=== PATIENT | female | born 1980 | race Caucasian/White ===

== ENCOUNTER 2020-04-07 07:32 | Outpatient (CLI) | payer OTHER, SELFPAY ==
--- NOTE | ~2020-04-07 | MM_ITS ---
EXAMINATION: MM screening dewayne BI w jasbir HISTORY: Screening TECHNIQUE: Craniocaudal and mediolateral oblique 3-D tomosynthesis images were obtained and synthetic 2-D images were generated. CAD analysis was submitted and interpreted. COMPARISON: Comparison to multiple prior studies sequentially, with oldest reviewed study dated 06/20. BREAST PARENCHYMAL COMPOSITION: The breasts are heterogeneously dense, which may obscure small masses . FINDINGS: There are subglandular silicone implants. There is no evidence of suspicious mass, calcific ation, or architectural distortion to suggest malignancy in either breast. There has been no suspicio us interval change. IMPRESSION: 1. No mammographic evidence of malignancy. 2. Recommend routine screening mammography in one year. BI-RADS Category 1: Negative Reviewed, dictated and finalized at location A. KMASON HELPER
== END 2020-04-07 07:33 | disposition home or self-care (01) ==
LOC: ANHIMG 07:36
PROVIDERS: PCP Physician Assistant; Visit Provider Nurse Practitioner
DX: Z12.31 Encounter for screening mammogram for malignant neoplasm of breast (principal)
CPT/HCPCS: 77063; 77067

== ENCOUNTER 2020-09-02 11:15 | Emergency (ER) | payer OTHER, SELFPAY ==
[2020-09-02 11:44] VITALS: BP 140/81; PULSE 78; RESP 17; TEMP 36.6; O2SAT 93
[2020-09-02] MEDS: SODIUM CHLORIDE 0.9% IV 1,000 ML 999 ML IV CONT (12:34)
[2020-09-02] MEDS: ONDANSETRON INJ 4 MG/2 ML VIAL IV PUSH (12:34)
[2020-09-02 13:08] LABS: Alanine Aminotransferase 33 U/L (4-35); Albumin Level 4.4 g/dL (3.5-5.1); Alkaline Phosphatase 56 U/L (38-126); Anion Gap 5 mmol/L (8-16); Aspartate Amino Transferase 35 U/L (14-36); Bilirubin,Total 0.1 mg/dL (0.2-1.3); Blood Urea Nitrogen 14 mg/dL (7-17); Calcium 8.8 mg/dL (8.4-10.2); Carbon Dioxide 32 mmol/L (22-30); Chloride 101 mmol/L (98-107); Estimated CRCL calculation 90 ml/min; Estimated Glomerular Filt Rate > 60; Glucose 98 mg/dL (65-105); Lipase 63 U/L (23-300); Sodium 138 mmol/L (137-145)
[2020-09-02 13:31] LABS: Basophils Percent Auto 0.3 % (0.2-1.2); Eosinophils Percent Auto 0.3 % (0-4.4); Hematocrit 45.3 % (37.0-47.0); Hemoglobin 14.8 g/dL (12.0-15.0); Immature Granulocyte Absolute 0.01 K/mm3 (0.00-0.031); Immature Granulocyte Percent A 0.3 % (0-0.5); Lymphocytes Absolute Auto 0.93 K/mm3 (0.9-3.2); Lymphocytes Percent Auto 23.9 % (18.3-44.2); Mean Corpuscular HGB Conc 32.7 g/dl (32-36); Mean Corpuscular Hemoglobin 29.3 pg (26-34); Mean Corpuscular Volume 89.7 fl (80-100); Mean Platelet Volume 9.8 fl (7.4-10.4); Monocytes Absolute Auto 0.4 K/mm3 (0.1-0.6); Monocytes Percent Auto 10.5 % (2.6-8.5); Neutrophils Absolute Auto 2.5 K/mm3 (1.3-6.7); Neutrophils Percent Auto 64.7 % (45.5-73.1); Platelet Count Result 204 k/mm3 (150-375); Red Blood Count 5.05 M/mm3 (4.2-5.4); Red Cell Distribution Width 12.6 % (11.5-14.5); White Blood Count 3.9 K/mm3 (4.5-10.0)
--- NOTE | 2020-09-02 13:36 | ED.NAVMDI ---
HPI - Nausea/Vomiting/Diarrhea General Chief complaint: Nausea/Vomiting/Diarrhea Stated complaint: n/v x 3 days, no taste/smell Time Seen by Provider: 09/02/20 11:28 History of Present Illness HPI Narrative: Patient is a 39-year-old female who presents ER with multiple issues. Reports she began feeling ill approximately 1 week ago but over the last 2 to 3 days she has been having nausea and vomiting as well as diarrhea. Is associated with loss of taste and loss of smell. No known Covid contacts. She is also having fatigue. Has found no alleviating factors. Related Data Allergies Allergy/AdvReac Type Severity Reaction Status Date / Time Penicillins Allergy Unknown Unknown Verified 09/02/20 11:48 No Known Allergies Allergy Unverified 08/06/17 09:53 Review of Systems Review of Systems: All systems reviewed & are unremarkable except as noted in HPI and below Constitutional: Constitutional: Denies chills, Reports fatigue and Denies fever(s) ENT: Denies nasal congestion and Denies sore throat Comments: Loss of taste and smell Cardiovascular: Cardiovascular: Denies chest pain and Denies radiating jaw, neck or arm pain Respiratory: Respiratory: Denies cough, Denies dyspnea and Denies wheezing Gastrointestinal: Gastrointestinal: Denies abdominal pain, Reports nausea and Reports vomiting Genitourinary: Genitourinary: Denies nocturia and Denies dysuria PMFSH Past Medical History Medical History (Updated 09/02/20 @ 13:53 by Judd Weaver MD) Depression Surgical History Surgical History (Updated 09/02/20 @ 13:37 by Judd Weaver MD) History of breast augmentation History of section Family History Family History (Updated 07/24/16 @ 11:29 by DOCTOR UNKNOWN) Father Patient's father is in good health, Onset Age: 55 Social History Social History Smoking status: Never smoker Alcohol intake: never Exam Narrative: Exam Narrative: GENERAL: Well-appearing, well-nourished, and in no acute distress. HEAD: Normocephalic, atraumatic. CHEST: Clear to auscultation. No respiratory distress. HEART: Regular rate and rhythm. Normal peripheral pulses. ABDOMEN: Soft, nontender, nondistended. EXTREMITIES: Normal range of motion. No edema. SKIN: Warm, dry, no rash. NEURO: Alert and oriented x3. PSYCH: Normal mood and affect. Course Course Emergency Course: Patient hydrated and received antiemetics. Feeling improved. Discharge home into isolation until she receives her Covid results. Patient verbalized understanding of treatment plan. Vital Signs Vital signs: Vital Signs Temperature 97.8 F 09/02/20 11:44 Pulse Rate 78 09/02/20 11:44 Respiratory Rate 17 09/02/20 11:44 Blood Pressure 140/81 09/02/20 11:44 Pulse Oximetry 93 09/02/20 11:44 Temperature 97.8 F 09/02/20 11:44 Pulse Rate 73 09/02/20 13:39 Respiratory Rate 18 09/02/20 13:39 Blood Pressure 136/81 09/02/20 13:39 Pulse Oximetry 93 09/02/20 13:39 MDM - Nausea/Vomiting/Diarrhea Lab Data Result diagrams: 09/02/20 13:22 09/02/20 12:33 Labs: Lab Results 09/02/20 09/02/20 09/02/20 Range/Units 12:33 13:22 13:39 WBC 3.9 L (4.5-10.0) K/mm3 RBC 5.05 (4.2-5.4) M/mm3 Hgb 14.8 (12.0-15.0) g/dL Hct 45.3 (37.0-47.0) % MCV 89.7 (80-100) fl MCH 29.3 (26-34) pg MCHC 32.7 (32-36) g/dl RDW 12.6 (11.5-14.5) % Plt Count 204 (150-375) k/mm3 MPV 9.8 (7.4-10.4) fl Immature Gran % (Auto) 0.3 (0-0.5) % Neut % (Auto) 64.7 (45.5-73.1) % Lymph % (Auto) 23.9 (18.3-44.2) % [place] % (Auto) 10.5 H (2.6-8.5) % Eos % (Auto) 0.3 (0-4.4) % Baso % (Auto) 0.3 (0.2-1.2) % Lymph # (Auto) 0.93 (0.9-3.2) K/mm3 [place] # (Auto) 0.4 (0.1-0.6) K/mm3 Eos # (Auto) 0.0 (0-0.3) K/mm3 Baso # (Auto) 0.0 (0.0-0.1) K/mm3 Abs Immat Gran (auto) 0.01 (0.00-0.031) K/mm3 Absolute Neuts (auto) 2.
[2020-09-02 13:39] VITALS: BP 136/81; PULSE 73; RESP 18; O2SAT 93
[2020-09-03 19:34] LABS: SARS-CoV-2 RNA PCR Positive
== END 2020-09-02 14:14 | disposition home or self-care (01) ==
PROVIDERS: Emergency Provider Emergency Medicine; PCP Physician Assistant
DX: U07.1 COVID-19 (principal); K52.9 Noninfective gastroenteritis and colitis, unspecified
CPT/HCPCS: 36415; 80053; 83690; 85025; 96361; 96374; 99284; C9803; J2405; J7030; U0003; U0005

== ENCOUNTER 2020-10-26 15:52 | Outpatient (CLI) | payer OTHER, SELFPAY ==
--- NOTE | ~2020-10-26 | MR_ITS ---
EXAMINATION: MR knee RT wo con DATE: 10/26/2020 16:55 INDICATION: Right knee pain. TECHNIQUE: Magnetic resonance imaging (MRI) of the right knee was performed without intravenous contr ast. Sequences included axial PD-weighted FS FSE, coronal PD-weighted FSE and PD-weighted FS FSE, sag ittal PD-weighted FSE, and sagittal T2-weighted FS FSE. COMPARISON: None. FINDINGS: Medial compartment: Medial meniscus is normal. There is shallow partial-thickness cartilage loss of tibial condyle involv ing the central and medial articular surface with mild subchondral edema-like marrow signal intensity . There is deep partial thickness cartilage loss of femoral condyle involving the central articular s urface. There are tiny marginal osteophytes. Lateral compartment: Lateral meniscus is normal. Lateral compartment cartilage is normal. There are tiny marginal osteophy arlene. Patellofemoral compartment: There is full-thickness cartilage loss of patellar median ridge and the adjacent aspect of medial fac et proximally with mild subchondral edema-like marrow signal intensity. There is shallow partial-thic kness cartilage loss of medial trochlea with mild subchondral edema-like signal intensity. There are marginal osteophytes. Ligaments and tendons: The anterior and posterior cruciate ligaments are normal. Medial collateral ligament and lateral lindsay ateral ligament complex are normal. The patellar tendon is normal. Fluid: There is a small knee joint effusion. There is a small Hunter's cyst. There is mild prepatellar and patiño perficial infrapatellar bursitis. IMPRESSION: 1. 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 2. Small knee joint effusion. 3. Small Hunter's cyst. Reviewed, dictated and finalized at location B. IMPRESSION: 1. Severe chondrosis of patellofemoral compartment and moderate chondrosis of m edial compartment. 2. Small knee joint effusion. 3. Small Hunter's cyst.
--- NOTE | ~2020-10-26 | MR_ITS ---
EXAMINATION: MR knee LT wo con DATE: 10/26/2020 17:17 INDICATION: Left knee pain. TECHNIQUE: Magnetic resonance imaging (MRI) of the left knee was performed without intravenous contra st. Sequences included axial PD-weighted FS FSE, coronal PD-weighted FSE and PD-weighted FS FSE, sagi ttal PD-weighted FSE, and sagittal T2-weighted FS FSE. COMPARISON: None. FINDINGS: Medial compartment: Medial meniscus is normal. Tibial cartilage is normal. There is deep partial thickness cartilage loss of femoral condyle involving the central articular surface with mild subchondral edema-like marrow s ignal intensity. There are tiny marginal osteophytes. Lateral compartment: Lateral meniscus is normal. Lateral compartment cartilage is normal. There are tiny marginal osteophy arlene. Patellofemoral compartment: There is full-thickness cartilage loss of patellar median ridge and the adjacent aspect of medial fac et proximally with mild subchondral edema-like marrow signal intensity. There is shallow partial-thic kness cartilage loss of medial trochlea. Marginal osteophytes are noted. Ligaments and tendons: The anterior and posterior cruciate ligaments are normal. Medial collateral ligament and lateral lindsay ateral ligament complex are normal. The patellar tendon is normal. Fluid: There is a small knee joint effusion. There is a small Hunter's cyst. There is mild prepatellar and patiño perficial infrapatellar bursitis. IMPRESSION: 1. 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 2. Small knee joint effusion. 3. Small Hunter's cyst. Reviewed, dictated and finalized at location B. IMPRESSION: 1. Severe chondrosis of patellofemoral compartment and moderate chondrosis of m edial compartment. 2. Small knee joint effusion. 3. Small Hunter's cyst.
== END 2020-10-26 15:53 ==
PROVIDERS: PCP Physician Assistant; Visit Provider Internal Medicine
DX: Q68.2 Congenital deformity of knee (principal); M25.462 Effusion, left knee; M71.22 Synovial cyst of popliteal space [Baker], left knee; M25.461 Effusion, right knee; M71.21 Synovial cyst of popliteal space [Baker], right knee
CPT/HCPCS: 73721

== ENCOUNTER 2021-05-10 16:16 | Outpatient (CLI) | payer OTHER, SELFPAY ==
--- NOTE | ~2021-05-10 | MM_ITS ---
EXAMINATION: MM scrn dewayne implant BI w jasbir HISTORY: Screening mammogram TECHNIQUE: Craniocaudal and mediolateral oblique 3-D tomosynthesis images with implant displacement a nd synthetic 2-D images were generated. Craniocaudal and mediolateral oblique views of the breasts wi thout implant displacement were obtained using full field digital mammography. CAD analysis was submi tted and interpreted. COMPARISON: Comparison to multiple prior studies sequentially, with oldest reviewed study dated 09/2018. BREAST PARENCHYMAL COMPOSITION: There are scattered areas of fibroglandular density. FINDINGS: There is no evidence of suspicious mass, calcification, or architectural distortion to sugg est malignancy in either breast. There has been no suspicious interval change. IMPRESSION: 1. No mammographic evidence of malignancy. 2. Recommend routine screening mammography in one year. BI-RADS Category 1: Negative Reviewed, dictated and finalized at location A. ADMINISTRATIVE ASSISTANT
== END 2021-05-10 16:17 | disposition home or self-care (01) ==
LOC: ANHIMG 16:18
PROVIDERS: PCP Physician Assistant; Visit Provider Nurse Practitioner
DX: Z12.31 Encounter for screening mammogram for malignant neoplasm of breast (principal)
CPT/HCPCS: 77063; 77067

== ENCOUNTER → 2021-06-23 12:14 | Outpatient (CLI) | payer OTHER, SELFPAY ==
--- NOTE | ~2021-06-23 | XR_ITS ---
XR foot RT min 3V DATE: 06/23/2021 12:29 INDICATION: Right foot pain TECHNIQUE: 4 views COMPARISON: None FINDINGS: There is mild narrowing of the first metatarsophalangeal joint. Plantar calcaneal enthesopathy; no associated periostitis or erosion. No fracture, dislocation, periosteal reaction or bone destruction. IMPRESSION: Mild narrowing at first metatarsophalangeal joint Plantar calcaneal enthesopathy. Reviewed, dictated and finalized at location A. L WORKER HELPER
== END ==
PROVIDERS: PCP Physician Assistant; Visit Provider Physician Assistant
DX: M79.671 Pain in right foot (principal); M77.31 Calcaneal spur, right foot
CPT/HCPCS: 73630

== ENCOUNTER 2022-08-01 13:55 | Outpatient (CLI) | payer BC, SELFPAY ==
--- NOTE | ~2022-08-01 | MM_ITS ---
EXAMINATION: MM scrn dewayne implant BI w jasbir HISTORY: Screening mammogram TECHNIQUE: Craniocaudal and mediolateral oblique 3-D tomosynthesis images with implant displacement a nd synthetic 2-D images were generated. Craniocaudal and mediolateral oblique views of the breasts wi thout implant displacement were obtained using full field digital mammography. CAD analysis was submi tted and interpreted. COMPARISON: 05/10/2021, 04/07/2020, 02/2019 bilateral implant screening mammogram examinations BREAST PARENCHYMAL COMPOSITION: The breasts are heterogeneously dense, which may obscure small masses . FINDINGS: Status post bilateral augmentation mammoplasty. There is no evidence of suspicious mass, ca lcification, or architectural distortion to suggest malignancy in either breast. There has been no patiño spicious interval change. IMPRESSION: 1. No mammographic evidence of malignancy. 2. Recommend routine screening mammography in one year. BI-RADS Category 1: Negative Reviewed, dictated and finalized at location A. RIAL STOCKKEEPER YARD
== END 2022-08-01 13:56 | disposition home or self-care (01) ==
LOC: ANHIMG 13:57
PROVIDERS: PCP Physician Assistant; Visit Provider Nurse Practitioner
DX: Z12.31 Encounter for screening mammogram for malignant neoplasm of breast (principal)
CPT/HCPCS: 77063; 77067

== ENCOUNTER 2023-09-03 15:27 | Outpatient (CLI) | payer OTHER, SELFPAY ==
--- NOTE | ~2023-09-03 | MM_ITS ---
EXAMINATION: MM scrn dewayne implant BI w jasbir HISTORY: Screening mammogram TECHNIQUE: Craniocaudal and mediolateral oblique 3-D tomosynthesis images with implant displacement a nd synthetic 2-D images were generated. Craniocaudal and mediolateral oblique views of the breasts wi thout implant displacement were obtained using full field digital mammography. CAD analysis was submi tted and interpreted. COMPARISON: Comparison to multiple prior studies sequentially, with oldest reviewed study dated 09/2018. BREAST PARENCHYMAL COMPOSITION: Not dense: There are scattered areas of fibroglandular density. FINDINGS: There are developing asymmetries in the right breast. The left breast is stable without omaira dence for malignancy. IMPRESSION: 1. Developing right breast asymmetries. 2. Additional mammographic views and possible breast ultrasound are recommended. BI-RADS Category 0: Incomplete: Needs additional imaging evaluation. Reviewed, dictated and finalized at location A. IMPRESSION: 1. Developing right breast asymmetries. 2. Additional mammographic views and possible breast ultrasound are recommended . BI-RADS Category 0: Incomplete: Needs additional imaging evaluation.
== END 2023-09-03 15:28 | disposition home or self-care (01) ==
PROVIDERS: PCP Physician Assistant; Visit Provider Nurse Practitioner
DX: Z12.31 Encounter for screening mammogram for malignant neoplasm of breast (principal); R92.8 Other abnormal and inconclusive findings on diagnostic imaging of breast
CPT/HCPCS: 77063; 77067

== ENCOUNTER 2023-09-16 09:19 | Outpatient (CLI) | payer OTHER, SELFPAY ==
--- NOTE | ~2023-09-16 | MMUS_ITS ---
EXAMINATION: MM diag dewayne implant RT w jasbir, US breast RT complete HISTORY: Follow-up right breast asymmetries TECHNIQUE: Additional 3-D tomosynthesis images of the right breast were performed and synthetic 2-D i mages were generated. CAD analysis was submitted and interpreted. High resolution complete right param st ultrasound was performed. COMPARISON: Comparison to multiple prior studies sequentially, with oldest reviewed study dated 01/2021. BREAST PARENCHYMAL COMPOSITION: Dense: The breasts are heterogeneously dense, which may obscure small masses FINDINGS: MAMMOGRAPHIC FINDINGS: There is a mass in the lower inner quadrant of the left breast with central lucency. There are no giovanny picious calcifications or architectural distortion. ULTRASOUND: Complete US of all 4 quadrants of the right breast and retroareolar region was reviewed. At 3:00, 4 c m from the nipple, there is a 6 mm cyst. At 5:00, 4 cm from the nipple there is an oval circumscribed parallel oriented hypoechoic mass with posterior acoustic enhancement and no internal vascularity. IMPRESSION: 1. Probable benign right breast masses. 2. Recommend 6 month follow-up diagnostic right mammogram and ultrasound BI-RADS category 3, probably benign findings. Reviewed, dictated and finalized at location A. IMPRESSION: 1. Probable benign right breast masses. 2. Recommend 6 month follow-up diagnostic right mammogram and ultrasound BI-RADS category 3, probably benign findings.
== END 2023-09-16 09:20 | disposition home or self-care (01) ==
PROVIDERS: PCP Physician Assistant; Visit Provider Obstetrics & Gynecology Gynecology
DX: R92.8 Other abnormal and inconclusive findings on diagnostic imaging of breast (principal)
CPT/HCPCS: 76641; 77061; 77065; G0279

== ENCOUNTER 2024-03-18 08:48 | Outpatient (CLI) | payer SELFPAY ==
--- NOTE | ~2024-03-18 | MMUS_ITS ---
EXAMINATION: MM diag dewayne implant RT w jasbir, US breast RT limited HISTORY: Follow-up right breast mass TECHNIQUE: Additional 3-D tomosynthesis images of the right breast were performed and synthetic 2-D i mages were generated. CAD analysis was submitted and interpreted. High resolution Limited right breas t ultrasound was performed. COMPARISON: Comparison to multiple prior studies sequentially, with oldest reviewed study dated 10/2021. BREAST PARENCHYMAL COMPOSITION: Not dense: There are scattered areas of fibroglandular density. FINDINGS: MAMMOGRAPHIC FINDINGS: There is a subglandular silicone implant. Right breast asymmetries are stable. No new masses, calcifi cations or architectural distortion. ULTRASOUND: Limited right breast ultrasound: At 3:00, 4 cm from the nipple there is a 4 mm cyst. At 5:00, 4 cm fr om the nipple there is an oval hypoechoic mass without internal vascularity or posterior features peewee suring 8 mm, unchanged from prior examination. IMPRESSION: 1. Stable benign-appearing right breast masses. 2. Given one year of interval stability, recommend 12 month followup Limited right breast ultrasound and bilateral mammogram BI-RADS category 3, probably benign findings. Reviewed, dictated and finalized at location B. IMPRESSION: 1. Stable benign-appearing right breast masses. 2. Given one year of interval stability, recommend 12 month followup Limited ri ght breast ultrasound and bilateral mammogram BI-RADS category 3, probably benign findings.
== END 2024-03-18 08:49 | disposition home or self-care (01) ==
PROVIDERS: PCP Physician Assistant; Visit Provider Obstetrics & Gynecology Gynecology
DX: N63.10 Unspecified lump in the right breast, unspecified quadrant (principal)
CPT/HCPCS: 76642; 77061; 77065; G0279

== ENCOUNTER 2025-02-25 13:16 | Outpatient (CLI) | payer OTHER, SELFPAY ==
--- NOTE | ~2025-02-25 | US_ITS ---
EXAMINATION: US pelvic complete INDICATION: IUD check Comparison:Ultrasound dated 04/13/2016 TECHNIQUE: Multiple transabdominal sonographic images of the pelvis performed. FINDINGS: The uterus measures 11.1 x 4 x 4.1 cm. There is an IUD present in the endometrium. The endometrial complex measures 6 mm. The right ovary measures 2.3 x 1.7 x 1.7 cm and the left ovary measures 1.8 x 1.7 x 1.1 cm. There are small follicles in each ovary. Normal doppler signal in both ovaries. There is no free fluid in the pelvis. There are no abnormal masses seen on either side. IMPRESSION: 1. Unremarkable pelvic ultrasound. Reviewed, dictated and finalized at location O.
== END 2025-02-25 13:17 | disposition home or self-care (01) ==
LOC: MICIMG 13:17
PROVIDERS: PCP Physician Assistant; Visit Provider Nurse Practitioner
DX: T83.32XA Displacement of intrauterine contraceptive device, initial encounter (principal)
CPT/HCPCS: 76856

== ENCOUNTER 2025-03-22 10:49 | Outpatient (CLI) | payer OTHER, SELFPAY ==
--- NOTE | ~2025-03-22 | MMUS_ITS ---
EXAMINATION: MM diagnostic dewayne BI w jasbir, US breast RT limited INDICATION: 44-year old female; BI-RADS 3, short-term follow-up probably benign right breast findings. COMPARISON: 03/18/2024 through 02/04/2019 TECHNIQUE: Digital Breast Tomosynthesis CC, MLO, and implant displaced CC and MLO views of Both breasts were obtained with computer-aided detection to assist in interpretation of the study. MAMMOGRAM FINDINGS: There are scattered areas of fibroglandular density. Bilateral breast Retropectoral Silicone implants in place appears intact. Previously reported right breast asymmetries are not seen on this examination. This is compatible with superimposition of fibroglandular tissue. No focal dominant mass, architectural distortion, or suspicious microcalcifications are identified. There are no features to suggest malignancy. RIGHT BREAST ULTRASOUND FINDINGS: Targeted evaluation of the area of concern was completed. 0.3 cm circumscribed anechoic mass at 3:00 location 4 cm from the nipple in the RIGHT breast redemonstrated have decreased in size in the interval. This is compatible with a resolving cyst. 0.6 x 0.6 x 0.2 cm parallel orientated circumscribed hypoechoic mass at 5:00 location 4 cm from the nipple in the RIGHT breast redemonstrated have decreased in size in the interval. IMPRESSION: Benign RIGHT breast findings have decreased in size in the interval. No mammographic evidence of malignancy within the left breast. RECOMMENDATION: RECOMMEND: Routine screening in 12 months. BI-RADS 2, BENIGN Reviewed, dictated and finalized at location B. IMPRESSION: Benign RIGHT breast findings have decreased in size in the interval. No mammographic evidence of malignancy within the left breast. RECOMMENDATION: RECOMMEND: Routine screening in 12 months. BI-RADS 2, BENIGN
--- OUTSIDE RECORDS SUMMARY | 2025-03-22 12:49 | XMS_ITS | Clinical Summary ---
Author Organization [facility] [address] Address [address] [place] [address] Care Team Providers Care Systems Support Officer Name Role Phone Becky Mena Primary Care Pr ovider Allergies Active Allergy Reactions Criticality Noted Date Comments Penicillins Rash Medium 03/10/2024 Medications testosterone undecanoate 750 mg/3 mL (250 mg/mL) solution Inject 750 mg into the muscle as instructed Active rOPINIRole (REQUIP) 3 mg tablet Take 1 tablet (3 mg total) by mouth nightly Active losartan-hydroCH LOROthiazide (Hyzaar) 50-12.5 mg per tablet Take 1 tablet by mouth daily Active meloxicam (MOBIC) 15 mg tabletIndication s:Right shoulder pain, unspecified chronicity Take 1 tablet (15 mg total) by mouth daily 14 tablet Active Active Problems No known active problems Surgical History Surgery Date Site/Laterality Comments SECTION TRANSUMBILICAL AUGMENTATION MAMMAPLASTY 06/03/2017 - 06/02/2018 Bilateral Medical History Medical History Date Comments Hypertension Social History Tobacco Use Types Packs/Day Years Used Date Smoking Tobacco: Never Smokeless Tobacco: Never Tobacco Cessation:Counseling Given: Not Answered AUDIT-C Answer Date Recorded Q1: How often do you have a drink containing alc ohol? Never 03/10/2024 Average Number of Drinks Not on file 024 Q3: How often do you have si x or more drinks on one occasion? Never 03/10/2024 Personal Safety Answer Date Recorded Getting School Help Needed Not on file 03/05 Comments Unknown Sex and Gender Information Value Date Recorded Sex Assigned at Not on file Legal Sex Female 11:51 AM CDT Gender Identity Not on file Sexual Orientation Not on file Obstetrics History Last Filed Vital Signs Vital Sign Reading Time Taken Comments Blood Pressure 134/84 03/10/2024 10:16 AM CDT Pulse 94 03/10/2024 10:16 AM CDT Temperature - - Respiratory Rate - - Oxygen Saturation - - Inhaled Oxygen Concentration - - Weight 93.9 kg (207 lb) 03/10/2024 10:16 AM CDT Height 157.5 cm (5' 2) 03/10/2024 10:16 AM CDT Body Mass Index 37.86 03/10/2024 10:16 AM CDT Plan of Treatment Health Maintenance Due Date Last Done Comments Breast Cancer Screening-Mammogram 1978 Cervical Cancer Screening 1978 Colon Cancer Screening-Colonoscopy 1978 Depression Screening 1978 Hepatitis C Screening 1978 DTaP/Tdap/Td Vaccine (1 - Tdap) 1989 Hepatitis B Screening 1996 Regular Well Visit/Exam 18-64 1996 Influenza Vaccine (#1) 2025 03/07/2020 HPV Vaccines Aged Out No longer eligi ble based on patient's age to complete this topic Pneumococcal vaccine <65 Aged Out No longer eligible based on patient's age to complete this topic Insurance [facility] [employer] Care Teams Systems Support Officer Relationship Specialty Start Date End Date Becky Mena PA [address] [place] [address] PCP - General Physician Pewter Caster 03/05/24
== END 2025-03-22 10:50 | disposition home or self-care (01) ==
PROVIDERS: PCP Physician Assistant; Visit Provider Obstetrics & Gynecology Gynecology
DX: R92.8 Other abnormal and inconclusive findings on diagnostic imaging of breast (principal)
CPT/HCPCS: 76642; 77062; 77066; G0279